=== PATIENT | female | born 1955 | race Caucasian/White ===

== ENCOUNTER 2025-03-14 13:31 | Outpatient (RCR) | payer MEDICARE, OTHER, SELFPAY ==
[2025-03-14 13:44] VITALS: BP 139/67
[2025-03-14] MEDS: LEQVIO 284 MG SC (13:57)
== END 2025-03-16 09:43 | disposition home or self-care (01) ==
LOC: OID 13:31
PROVIDERS: ATTENDING PHYSICIAN Internal Medicine Cardiovascular Disease; FAMILY PHYSICIAN Family Medicine
DX: E78.5 Hyperlipidemia, unspecified (principal)
CPT/HCPCS: 96372; J1306

== ENCOUNTER → 2025-03-16 08:59 | Outpatient (REF) | payer MEDICARE, OTHER, SELFPAY | LOC: HWRCS 08:59 | PROVIDERS: ATTENDING PHYSICIAN Family Medicine | DX: R06.02 Shortness of breath (principal) | CPT/HCPCS: 93306 ==

== ENCOUNTER → 2025-03-30 07:18 | Outpatient (REF) | payer MEDICARE, OTHER, SELFPAY | LOC: RCS 07:18 | PROVIDERS: ATTENDING PHYSICIAN Family Medicine | DX: R06.02 Shortness of breath (principal); R00.2 Palpitations | CPT/HCPCS: 93017 ==